=== PATIENT | female | born 1950 | race Caucasian/White ===

== ENCOUNTER 2016-09-24 12:32 | Day surgery (SDC) | payer MEDICARE, BC ==
[~2016-09-24 12:32] MED LIST: AMLO5 PO; FENT50DI T-DERMAL; HUMA100I SC; LANTUSP SQ; LORTA5 PO; PROM25TA5 PO; PROT40TA PO; RIVA15 PO; ROSU40 PO; [UNRECOGNIZED DRUG - CODE] RECTAL
[2016-09-24 13:00] VITALS: BP 191/79; PULSE 100; RESP 20; TEMP 98.4; O2SAT 92
[2016-09-24] MEDS ORDERED: DIAZ5TAB PO (13:03)
[2016-09-24] MEDS ORDERED: ROZE8TAB8 PO (13:03)
[2016-09-24] MEDS ORDERED: EVOX30CA2 PO (13:03)
--- NOTE | 2016-09-24 14:23 | PD.RAD ---
Radiology Post PICC Prog Note Pre Procedure Diagnosis: (1) Encounter for assessment of peripherally inserted central venous catheter ( PICC) Post Procedure Diagnosis: (1) Encounter for assessment of peripherally inserted central venous catheter ( PICC) Procedure: Right PICC line replacement Procedure Date: Sep 24, 2016 Supervising Radiologist Markie Escobar JR Proceduralist/Assist: Enma Duncan, RT(R)(), Kelsey Palma, RT(R) Device Side: Right Greenlandic: 4 single lumen cm: 38 Catheter: Power PICC Plan of Activity Patient to Unit: ROPU Patient Condition: Good PICC line can be used immediately Additional Comments: PICC line broken near hub. Attempts at placing new PICC line show tandem stenosis of the right axillary and subclavian veins requiring venoplasty. Tip of PICC positioned in RA. Functions well. OK to use. Jr. Shawn,Markie Hernandez MD Sep 24, 2016 14:23
[2016-09-24] MEDS ORDERED: IOHEXOL 350 MG/ML 50 ML BTL (for RAD DIAG) ONE (14:25)
--- NOTE | 2016-09-24 16:16 | RADRPT ---
EXAM DATE/TIME: 09/24/2016 13:45 [facility] COMPARISON: No previous studies available for comparison. INDICATIONS : Patient with history of scleroderma in need of PICC line replacement. Patient's current PICC line has fractured at the hub. MEDICAL HISTORY : CAD, COPD, Diabetes, Fibromyalgia, HLD, HSV infection, HTN, Scleroderma, Anal cancer SURGICAL HISTORY : Chest tube, Cholecystectomy, Colonoscopy, Esophageal dilation, Esophagogastroduodenoscopy with biopsy , Hemicolectomy, PTCA, Thoracotomy, Whitmore catheter placement ENCOUNTER: Subsequent ACUITY: 1 day PAIN SCORE: 0/10 FLUORO TIME: 3.7 minutes IMAGE SERIES: 2 MEDICATION(S): 1.) 200 units Heparin IV DEVICE(S): 1.) 4 Albanian single lumen 38 cm Xcela Power PICC TECH NOTE: Edgar balloon 4x40mm 135cmJOJOCHRISSY WIN Sarah MR#:[id number]/ Exam Dt/Desc: September 24PICC LINE REPLACEMENT, POWER PICC PROCEDURE : 1. Fluoroscopic guidance. 2. Right upper extremity venogram 3. Venoplasty of the right axillary vein 4. Venoplasty of the right subclavian vein 5. Fluoroscopic guided central venous Power PICC line replacement. The risks, benefits and alternatives to the procedure were explained and verbal and written consent w as obtained. The arm was prepped in sterile fashion. Full sterile technique was used, including cap , mask, sterile gloves and gown and a large sterile sheet. Hand hygiene and 2% chlorhexidine prep wa s utilized per protocol for cutaneous antisepsis with appropriate dry time for site. The skin and solorio bcutaneous tissues were infiltrated with local anesthetic solution. The existing PICC line shows a fracture at the hub. Under direct fluoroscopic guidance the previously placed PICC line was removed over a guidewire and a fresh Power Injectable PICC line was cut to pres cribed length and attempted to be positioned with tip at the cavoatrial junction level. The PICC line would not progress past vein level. A venogram was therefore performed highlighting a very small casey iber basilic vein which contains the PICC line is a focal high-grade stenosis of the axillary vein as well as the subclavian vein. These responded well to gentle venoplasty utilizing a 4 mm balloon. The PICC line was then able to pass into the cavoatrial junction. The line was flushed and secured per p rotocol. CONCLUSION: 1. PICC line exchange with venoplasty required due to tandem stenoses of the right upper extremity as detailed above. 2. The PICC line can be used immediately. Markie Escobar Jr., MD on September 24, 2016 at 16:03 Board Certified Radiologist. This report was verified electronically.
== END 2016-09-24 14:30 | disposition home or self-care (01) ==
LOC: HROP 12:32 → HRIP 12:35 → HROP 14:30
PROVIDERS: ATTEND Family Medicine
DX: T82.898A Other specified complication of vascular prosthetic devices, implants and grafts, initial encounter (principal); M79.7 Fibromyalgia; J44.9 Chronic obstructive pulmonary disease, unspecified; I10 Essential (primary) hypertension; E78.5 Hyperlipidemia, unspecified; E11.9 Type 2 diabetes mellitus without complications; I25.10 Atherosclerotic heart disease of native coronary artery without angina pectoris
CPT/HCPCS: 36005; 36569; 37248; 76937; 77001; C1725; C1751; J1642; Q9967

== ENCOUNTER → 2016-10-07 | Outpatient (CLI) | payer MEDICARE, BC ==
[~2016-10-07] MED LIST changes: -AMLO5 PO; +DIAZ5TAB PO; +EVOX30CA2 PO; +HUMALOG SQ; +HYDR-3516 PO; +LANTUS2P SQ; +LISI-519 PO; +PERC5TAB12 PO; +PROM25TA10 IV-CENTRAL; -RIVA15 PO; +ROSU20 PO; -ROSU40 PO; +ROZE8TAB8 PO; -[UNRECOGNIZED DRUG - CODE] RECTAL
[2016-10-07 16:54] LABS: BASOPHIL # 0.1 TH/MM3 (0-0.2); BASOPHIL % 0.3 % (0.0-2.0); EOSINOPHIL # 0.4 TH/MM3 (0-0.4); HEMATOCRIT 40.9 % (35.0-46.0); LYMPH % 55.8 % (9.0-44.0); LYMPHOCYTE # 10.4 TH/MM3 (1.0-4.8); MEAN CELL VOLUME 92.6 FL (80.0-100.0); MEAN CORPUSCULAR HEMOGLOBIN 29.7 PG (27.0-34.0); MEAN CORPUSCULAR HGB CONC 32.1 % (32.0-36.0); MONO % 4.4 % (0.0-8.0); NEUT % 37.5 % (16.0-70.0); PLATELET COUNT 204 TH/MM3 (150-450); RED BLOOD COUNT 4.41 MIL/MM3 (4.00-5.30); RED CELL DISTRIBUTION WIDTH 14.2 % (11.6-17.2); WHITE BLOOD COUNT 18.7 TH/MM3 (4.0-11.0)
[2016-10-07 16:55] LABS: HEMO FLAGS AUTO DIFF
[2016-10-07 17:02] LABS: BLOOD, URINE NEG (NEG); GLUCOSE,URINE NEG (NEG); HYALINE CAST, URINE 1 /lpf (RARE); KETONE, URINE NEG (NEG); MUCUS URINE FEW /lpf (OCC); NITRITE,URINE NEG (NEG); SQUAMOUS EPITHELIAL CELL URINE 2 /hpf (0-5); URINE COLOR YELLOW (YELLW/STRAW)
[2016-10-07 17:04] LABS: ALT (GPT) 30 U/L (10-53); ANION GAP 8 MEQ/L (5-15); AST (GOT) 13 U/L (15-37); BICARBONATE 28.4 MEQ/L (21.0-32.0); BLOOD UREA NITROGEN 13 MG/DL (7-18); CHLORIDE 104 MEQ/L (98-107); GLOMERULAR FILTRATION RATE 48 ML/MIN (>89); GLUCOSE,FASTING 184 MG/DL (74-99); POTASSIUM 4.1 MEQ/L (3.5-5.1); SODIUM (NA) 140 MEQ/L (136-145); URIC ACID 4.6 MG/DL (2.6-6.0)
[2016-10-07 17:06] LABS: ALKALINE PHOSPHATASE 123 U/L (45-117); TOTAL BILIRUBIN ADULT 0.3 MG/DL (0.2-1.0)
[2016-10-07 17:25] LABS: BANDS 1 % (0-6); EOSINOPHILS 2 % (0-4); NEUTROPHIL # MANUAL DIFF 10.5 TH/MM3 (1.8-7.7); POLYS (SEG NEUTROPHILS) 55 % (16-70); WBC DIFF SAMPLE 100
[2016-10-07 17:26] LABS: PLATELET ESTIMATE SMEAR NORMAL (NORMAL); PLATELET MORPHOLOGY NORMAL (NORMAL); SCAN/DIFF FINAL DIFF MANUAL
[2016-10-07 18:08] LABS: HDL CHOLESTEROL 53.9 MG/DL (40.0-60.0)
[2016-10-09 19:53] LABS: RHEUMATOID FACTOR 18 IU/mL (<14)
[2016-10-10 11:54] LABS: ANA IFA TITER ND titer (()); ANA SER QL NEGATIVE (NEGATIVE); SJOGRENS AB SSA <1.0 NEG AI (<1.0 NEGATIVE); SJOGRENS AB SSB <1.0 NEG AI (<1.0 NEGATIVE)
[2016-10-10 19:53] LABS: DS DNA AB(CRITHIDIA) NEGATIVE (NEGATIVE); DS DNA AB(CRITHIDIA)TITER ND (<1:10)
== END ==
LOC: PLAB 14:30
PROVIDERS: ATTEND Allergy & Immunology
DX: M34.1 CR(E)ST syndrome (principal); E78.00 Pure hypercholesterolemia, unspecified; N18.9 Chronic kidney disease, unspecified; E11.22 Type 2 diabetes mellitus with diabetic chronic kidney disease; I25.10 Atherosclerotic heart disease of native coronary artery without angina pectoris
CPT/HCPCS: 36415; 80053; 80061; 81001; 84550; 85007; 85027; 86038; 86140; 86235; 86255; 86431

== ENCOUNTER → 2016-11-04 | Outpatient (CLI) | payer MEDICARE, BC ==
[2016-11-04 18:02] LABS: HDL CHOLESTEROL 69.2 MG/DL (40.0-60.0)
== END ==
LOC: PLAB 13:59
PROVIDERS: ATTEND Internal Medicine Interventional Cardiology
DX: E78.00 Pure hypercholesterolemia, unspecified (principal); I25.10 Atherosclerotic heart disease of native coronary artery without angina pectoris; N18.9 Chronic kidney disease, unspecified; E11.22 Type 2 diabetes mellitus with diabetic chronic kidney disease; Z79.899 Other long term (current) drug therapy
CPT/HCPCS: 36415; 80061; 84450; 84460

== ENCOUNTER 2016-11-08 02:15 | Emergency (ER) | payer MEDICARE, BC ==
[~2016-11-08] VITALS: Ht 160 cm; Wt 44.5 kg
[~2016-11-08 02:15] MED LIST changes: -HUMALOG SQ; -HYDR-3516 PO; -LANTUS2P SQ; -LISI-519 PO; -PERC5TAB12 PO; -PROM25TA10 IV-CENTRAL; -ROSU20 PO
[2016-11-08 02:25] VITALS: BP_SYST 61; PULSE 81; RESP 16; TEMP 98.3; O2SAT 98
[2016-11-08 02:26] VITALS: BP 125/61; PULSE 81; RESP 20
--- NOTE | 2016-11-08 02:59 | RADHPO ---
EXAM DATE/TIME: 11/08/2016 02:41 [facility] COMPARISON: No previous studies available for comparison. INDICATIONS : Left elbow pain after fall from ladder 1 hour ago MEDICAL HISTORY : None. SURGICAL HISTORY : None. ENCOUNTER: Initial ACUITY: 1 day PAIN SCORE: 10/10 LOCATION: Left posterior elbow FINDINGS: There is a fracture through the body of the olecranon process. The fracture fragments are b y 1.2 cm. There is evidence of a joint effusion. No definite joint dislocation. The proximal radius i s grossly intact. The distal humerus is grossly intact. CONCLUSION: There is a fracture through the body of the olecranon process with 1.2 cm of separation of the fractu re fragments. Leonel Dietrich MD on November 08, 2016 at 2:56 Board Certified Radiologist. This report was verified electronically.
[2016-11-08 03:12] VITALS: BP 125/61; PULSE 81; RESP 20; TEMP 98.3; O2SAT 98
[2016-11-08 03:30] VITALS: BP 128/65; PULSE 79; RESP 20; O2SAT 99
[2016-11-08] MEDS ORDERED: PROM25TA5 PO (03:42)
[2016-11-08] MEDS ORDERED: HUMALOG SQ (03:42)
[2016-11-08] MEDS ORDERED: PROT40TA PO (03:42)
[2016-11-08] MEDS ORDERED: FENT50DI T-DERMAL (03:42)
[2016-11-08] MEDS ORDERED: HYDR-3516 PO (03:42)
[2016-11-08] MEDS ORDERED: LANTUS2P SQ (03:42)
[2016-11-08] MEDS ORDERED: PROMETHAZINE HCL 25 MG TAB PO ONE (03:45)
[2016-11-08] MEDS ORDERED: oxyCODONE/ACETAMINOPHEN 7.5 MG/325 MG TAB PO ONE (03:45)
--- NOTE | 2016-11-08 03:51 | PD ---
HPI Chief Complaint: Fall Time Seen by Provider: 03:36 Travel History International Travel<30 days: No Contact w/Intl Traveler<30days: No Traveled to known affect area: No History of Present Illness HPI The patient is a 66-year-old female that fell at 1:30 AM this morning on her left elbow. She complains of persistent pain in the left elbow as well as swelling. She denies any numbness, weakness of her hand muscles. He does have a history of scleroderma. The patient's orthopedic physician is Dr. Murry. [facility] Past Medical History Depression: Yes Cancer: Yes (SKIN CANCER, newly diagnosed rectal cancer) Cardiovascular Problems: Yes (STENT IN LAD) COPD: Yes Coronary Artery Disease: Yes Diabetes: Yes (TYPE 1) Patient Takes Glucophage: No Diminished Hearing: No Endocrine: Yes Fibromyalgia: Yes Gastrointestinal Disorders: Yes (LIVER FAILURE) Glaucoma: No Genitourinary: No Hepatitis: No Hiatal Hernia: No Hypertension: Yes Immune Disorder: Yes Medical other: Yes (SCLERODERMA CAD GASTROPARESIS DEGENERATIVE DISC DESEASE, dvt) Musculoskeletal: Yes (DDD) Neurologic: Yes (DIABETIC NEUROPATHY) Psychiatric: Yes (DEPRESSION) Reproductive: No Respiratory: Yes Immunizations Current: Yes Myocardial Infarction: Yes Thyroid Disease: No PNEUMOCCOCAL Vaccine (Year): 2006 Menopausal: Yes Past Surgical History Abdominal Surgery: Yes (INTERTHECAL PUMP ABD,HEMICOLECTOMY) Body Medical Devices: CRAIN CATH Cardiac Surgery: Yes (STENT X 1 LAD) Coronary Stent: Yes (LAD) Ear Surgery: No Endocrine Surgery: No Eye Surgery: Yes (LASER RT EYE AND CATARACTS) Genitourinary Surgery: No Gynecologic Surgery: Yes (HYSTERECTOMY) Hysterectomy: Yes (1982) Neurologic Surgery: No Oral Surgery: Yes ( UPPER AND LOWER FULL EXTRACTION) Pacemaker: No Thoracic Surgery: No Other Surgery: Yes (STENT ,INTRATHECAL PUMP, LT LOWER ABD) Social History Alcohol Use: No Tobacco Use: Yes (1 PPD) Substance Use: No Allergies-Medications (Allergen,Severity, Reaction): Coded Allergies: Erythromycin (Verified Allergy, Severe, SEVERE VOMITING, 09/24/16) PT STATES ALLERGIC TO ALL MYCINS Sulfa (Verified Allergy, Severe, HEADACHE & VOMITING, 09/24/16) Prialt (Verified Allergy, Unknown, PT DOES NOT REMEMBER, 09/24/16) DHE 45 (Verified Adverse Reaction, Intermediate, N/V HIGH BP, 09/24/16) Uncoded Allergies: MYCINS (Adverse Reaction, Severe, HEADACHE,VOMITING & STOMATITIS, 11/02/15) PATIENT VERBALIZES SHE HAD VANCOMYCIN LAST ADMISSION AND DID FINE.. KENNA (Adverse Reaction, Severe, VOMITING, 11/02/15) SEA SNAIL VENOM USED FOR MIGRANE AND NECK PAIN. Reported Meds & Prescriptions Reported Meds & Active Scripts Active Reported Hydrocodone-Acetaminophen 5-325 mg Tab 1 Tab PO Q6H PRN Humalog Inj (Insulin Human Lispro) 1,000 Unit/10 Ml Vial 1-9 Units SQ ACHS Max dose at bedtime:( )units; sugars< 70,(0)units; sugars 150-199,(1)unit; sugars 200-249,(3)units; sugars 250-299,(5)units; sugars 300-349,(7)units; sugars more than 349,(9)units. Lantus Inj (Insulin Glargine) 1,000 Unit/10 Ml Vial 30 Units SQ HS Protonix (Pantoprazole Sodium) 40 Mg Tab 40 Mg PO DAILY Phenergan (Promethazine HCl) 25 Mg Tab 25 Mg PO Q6H PRN Fentanyl Patch 72 HR (Fentanyl) 50 Mcg/Hr Patch 50 Mcg T-DERMAL Q72H Remove old patch when new one placed. Rozerem (Ramelteon) 8 Mg Tab 8 Mg PO DAILY Diazepam 5 Mg Tab 5 Mg PO TID PRN Evoxac (Cevimeline HCl) 30 Mg Cap 30 Mg PO TID Review of Systems Except as stated in HPI: all other systems reviewed are Neg Physical Exam Narrative GENERAL: The patient is alert, oriented 3 in moderate apparent distress with her left elbow pain. Her vital signs are normal. SKIN: Focused skin assessment warm/dry. HEAD: Atraumatic. Normocephalic. EYES: Pupils equal and round. No scleral icterus. No injection or drainage. ENT: No nasal bleeding or discharge. Mucous membranes pink and moist. NECK: Trachea midline. No JVD. CARDIOVASCULAR: Regular rate and rhythm. No murmur appreciated. RESPIRATORY: No accessory muscle use. Clear to auscultation. Breath sounds equal bilaterally. GASTROINTESTINAL: Abdomen soft, non-tender, nondistended. Hepatic and splenic margins not palpable. MUSCULOSKELETAL: No obvious deformities. No clubbing. No cyanosis. No edema. There is tenderness and swelling over the olecranon of the left elbow. NEUROLOGICAL: Awake and alert. No obvious cranial nerve deficits. Motor grossly within normal limits. Normal speech. The patient has normal sensation and capillary refill on the left hand. PSYCHIATRIC: Appropriate mood and affect; insight and judgment normal. Data Data Last Documented VS Vital Signs Date Time Temp Pulse Resp B/P Pulse Ox O2 Delivery O2 Flow Rate FiO2 11/08/16 05:04 76 20 113/59 96 11/08/16 03:12 98.3 Orders Elbow, Complete (4 Vws) (11/08/16 02:34) Splint Or Brace Apply/Monitor (11/08/16 03:41) Morphine Inj (Morphine Inj) (11/08/16 04:15) Prochlorperazine Inj (Compazine Inj) (11/08/16 04:15) Fiberglass Splint Elbow Adult (11/08/16 ) Sling Cradle Arm (11/08/16 ) MDM Medical Decision Making Medical Screen Exam Complete: Yes Emergency Medical Condition: Yes Medical Record Reviewed: Yes Interpretation(s) There is a fracture through the body of olecranon with 1.2 cm separation. There is evidence of a joint effusion. There is no joint dislocation. Differential Diagnosis Fracture left elbow, dislocation left elbow, contusion left elbow Narrative Course The patient has a fracture through the olecranon of the left elbow. Dr. Murry is being called. The physician assistant program director for Dr. Goins called back and recommend the patient be admitted for surgery this morning. The patient refused to be admitted. She said she wanted to go home. Despite strong arguments to stay and be admitted the patient insisted on going home. She was put in a posterior long-arm splint. She was told that this pain would increase and that fixing this fracture would lead to a decrease in pain ultimately. She understood this but insisted on going home. Diagnosis Primary Impression: Fracture of left olecranon process Additional Instructions: Call Dr. Murry office later this morning to try to get back into proper treatment for your elbow. Disposition: 07 AGAINST MEDICAL ADVICE Condition: Stable Ramsey Ro MD November 08, 2016 03:51
[2016-11-08] MEDS ORDERED: PROCHLORPERAZINE INJ 10 MG/2 ML VIAL IV PUSH ONE (04:15)
[2016-11-08] MEDS ORDERED: MORPHINE SULFATE 4 MG/ML INJ IV PUSH ONE (04:15)
[2016-11-08 05:04] VITALS: BP 113/59
[2016-11-08] MEDS ORDERED: ROSU20 PO (12:06)
[2016-11-08] MEDS ORDERED: PERC5TAB12 PO (12:06)
[2016-11-08] MEDS ORDERED: LISI-519 PO (12:06)
== END 2016-11-08 05:20 | disposition left against medical advice (07) ==
LOC: PHED 02:15
DX: S52.022A Displaced fracture of olecranon process without intraarticular extension of left ulna, initial encounter for closed fracture (principal); E10.9 Type 1 diabetes mellitus without complications; I10 Essential (primary) hypertension; F17.200 Nicotine dependence, unspecified, uncomplicated; W19.XXXA Unspecified fall, initial encounter; Z53.29 Procedure and treatment not carried out because of patient's decision for other reasons; Z79.4 Long term (current) use of insulin; Z87.2 Personal history of diseases of the skin and subcutaneous tissue; Z86.59 Personal history of other mental and behavioral disorders; Z85.828 Personal history of other malignant neoplasm of skin; Z85.048 Personal history of other malignant neoplasm of rectum, rectosigmoid junction, and anus; Z86.79 Personal history of other diseases of the circulatory system; Z87.09 Personal history of other diseases of the respiratory system; Z87.39 Personal history of other diseases of the musculoskeletal system and connective tissue; Z87.19 Personal history of other diseases of the digestive system; Z86.2 Personal history of diseases of the blood and blood-forming organs and certain disorders involving the immune mechanism
CPT/HCPCS: 29105; 73080; 96374; 96375; 99284; J0780; J2270

== ENCOUNTER 2016-11-08 10:28 | Emergency (ER) | payer MEDICARE, BC ==
[~2016-11-08] VITALS: Ht 160 cm; Wt 44.5 kg
[~2016-11-08 10:28] MED LIST changes: +HUMALOG SQ; +HYDR-3516 PO; +LANTUS2P SQ
[2016-11-08 10:31] VITALS: BP 185/86; PULSE 104; RESP 20; TEMP 98.4; O2SAT 99
--- NOTE | 2016-11-08 11:37 | PD ---
HPI Chief Complaint: Injury Time Seen by Provider: 10:49 Travel History International Travel<30 days: No Contact w/Intl Traveler<30days: No Traveled to known affect area: No History of Present Illness HPI This is a 66-year-old female who presents to the emergency department having fallen off of a step stool last evening injuring her left elbow. She was diagnosed with an olecranon fracture at [place] in the emergency department last evening. It was recommended at the time that she be admitted but she went home. She says she went home to get some clothes. She returns to the emergency department for admission for surgical intervention. She does have a history of urinary artery disease, scleroderma and diabetes. PFSH Past Medical History Asthma: Yes Depression: Yes Cancer: Yes (SKIN CANCER, ANAL CA) Cardiac Catheterization: Yes (STENTS PLACED) Cardiovascular Problems: Yes (STENT IN LAD) COPD: Yes Coronary Artery Disease: Yes Diabetes: Yes (TYPE 1) Patient Takes Glucophage: No Diminished Hearing: No Endocrine: Yes Fibromyalgia: Yes Gastrointestinal Disorders: Yes (LIVER FAILURE) Glaucoma: No Genitourinary: No Hepatitis: No Hiatal Hernia: No Hypertension: Yes Immune Disorder: Yes Medical other: Yes (SCLEDERMA CAD GASTROPARESIS DEGENERATIVE DISC DESEASE, dvt) Musculoskeletal: Yes (DDD) Neurologic: Yes (DIABETIC NEUROPATHY) Psychiatric: Yes (DEPRESSION) Reproductive: No Respiratory: Yes Immunizations Current: Yes Myocardial Infarction: Yes Pneumonia: Yes Thyroid Disease: No PNEUMOCCOCAL Vaccine (Year): 2006 Menopausal: Yes Past Surgical History Abdominal Surgery: Yes (INTERTHECAL PUMP ABD,HEMICOLECTOMY) Body Medical Devices: CRAIN CATH Cardiac Surgery: Yes (STENT X 1 LAD) Coronary Stent: Yes (LAD) Ear Surgery: No Endocrine Surgery: No Eye Surgery: Yes (LASER RT EYE AND CATARACTS) Genitourinary Surgery: No Gynecologic Surgery: Yes (HYSTERECTOMY) Hysterectomy: Yes (1982) Neurologic Surgery: No Oral Surgery: Yes ( UPPER AND LOWER FULL EXTRACTION) Pacemaker: No Thoracic Surgery: No Other Surgery: Yes (STENT ,INTRATHECAL PUMP, LT LOWER ABD) Social History Alcohol Use: No Tobacco Use: Yes (1 PPD) Substance Use: No Allergies-Medications (Allergen,Severity, Reaction): Coded Allergies: Erythromycin (Verified Allergy, Severe, SEVERE VOMITING, 11/08/16) PT STATES ALLERGIC TO ALL MYCINS Sulfa (Verified Allergy, Severe, HEADACHE & VOMITING, 11/08/16) Prialt (Verified Allergy, Unknown, PT DOES NOT REMEMBER, 11/08/16) DHE 45 (Verified Adverse Reaction, Intermediate, N/V HIGH BP, 11/08/16) Uncoded Allergies: MYCINS (Adverse Reaction, Severe, HEADACHE,VOMITING & STOMATITIS, 11/02/15) PATIENT VERBALIZES SHE HAD VANCOMYCIN LAST ADMISSION AND DID FINE.. PRIAULT (Adverse Reaction, Severe, VOMITING, 11/02/15) SEA SNAIL VENOM USED FOR MIGRANE AND NECK PAIN. Reported Meds & Prescriptions Reported Meds & Active Scripts Active Reported Percocet (Oxycodone-Acetaminophen) 5-325 mg Tab 1 Tab PO BID PRN Crestor (Rosuvastatin Calcium) 20 Mg Tab 20 Mg PO DAILY Lisinopril 5 Mg Tab 5 Mg PO DAILY Humalog Inj (Insulin Human Lispro) 1,000 Unit/10 Ml Vial 1-9 Units SQ ACHS Max dose at bedtime:( )units; sugars< 70,(0)units; sugars 150-199,(1)unit; sugars 200-249,(3)units; sugars 250-299,(5)units; sugars 300-349,(7)units; sugars more than 349,(9)units. Lantus Inj (Insulin Glargine) 1,000 Unit/10 Ml Vial 30 Units SQ HS Protonix (Pantoprazole Sodium) 40 Mg Tab 40 Mg PO DAILY Phenergan (Promethazine HCl) 25 Mg Tab 25 Mg PO Q6H PRN Fentanyl Patch 72 HR (Fentanyl) 50 Mcg/Hr Patch 50 Mcg T-DERMAL Q72H Remove old patch when new one placed. Rozerem (Ramelteon) 8 Mg Tab 8 Mg PO DAILY Diazepam 5 Mg Tab 5 Mg PO TID PRN Evoxac (Cevimeline HCl) 30 Mg Cap 30 Mg PO TID Review of Systems General / Constitutional: No: Fever, Chills HENT: No: Headaches Physical Exam Narrative GENERAL: Well-appearing, no acute distress, nontoxic SKIN: Warm and dry. HEAD: Atraumatic. Normocephalic. ENT: No nasal bleeding or discharge. Moist mucous membranes MUSCULOSKELETAL: Left elbow is in a splint. NEUROLOGICAL: Awake and alert. No obvious cranial nerve deficits. Motor grossly within normal limits. Normal speech. PSYCHIATRIC: Appropriate mood and affect; insight and judgment normal. Data Data Last Documented VS Vital Signs Date Time Temp Pulse Resp B/P Pulse Ox O2 Delivery O2 Flow Rate FiO2 11/08/16 10:45 18 Room Air 11/08/16 10:31 98.4 104 185/86 99 Orders Complete Blood Count With Diff (11/08/16 11:09) Comprehensive Metabolic Panel (11/08/16 11:09) Urinalysis - C+S If Indicated (11/08/16 11:09) Prothrombin Time / Inr (Pt) (11/08/16 11:09) Act Partial Throm Time (Ptt) (11/08/16 11:09) Electrocardiogram (11/08/16 ) ^ Insert Iv (11/08/16 11:09) Acetamin-Hydrocod 325-5 Mg ([place] 5-325 (11/08/16 12:45) Diet Diabetic (11/08/16 Lunch) Chest, Single Ap (11/08/16 ) Labs Laboratory Tests Test 11/08/16 11:26 White Blood Count 17.5 TH/MM3 Red Blood Count 4.06 MIL/MM3 Hemoglobin 12.2 GM/DL Hematocrit 37.3 % Mean Corpuscular Volume 92.0 FL Mean Corpuscular Hemoglobin 30.0 PG Mean Corpuscular Hemoglobin 32.6 % Concent Red Cell Distribution Width 14.1 % Platelet Count 143 TH/MM3 Mean Platelet Volume 10.4 FL Neutrophils (%) (Auto) 44.5 % Lymphocytes (%) (Auto) 49.3 % Monocytes (%) (Auto) 5.1 % Eosinophils (%) (Auto) 1.0 % Basophils (%) (Auto) 0.1 % Neutrophils # (Auto) 7.8 TH/MM3 Lymphocytes # (Auto) 8.6 TH/MM3 Monocytes # (Auto) 0.9 TH/MM3 Eosinophils # (Auto) 0.2 TH/MM3 Basophils # (Auto) 0.0 TH/MM3 CBC Comment AUTO DIFF Differential Total Cells 100 Counted Neutrophils % (Manual) 44 % Band Neutrophils % 3 % Lymphocytes % 47 % Monocytes % 6 % Neutrophils # (Manual) 8.2 TH/MM3 Differential Comment FINAL DIFF MANUAL Smudge Cells PRESENT Platelet Estimate LOW Platelet Morphology Comment NORMAL Red Cell Morphology Comment NORMAL Prothrombin Time 10.9 SEC Prothromb Time International 1.0 RATIO Ratio Activated Partial 26.5 SEC Thromboplast Time Sodium Level 137 MEQ/L Potassium Level 4.5 MEQ/L Chloride Level 103 MEQ/L Carbon Dioxide Level 25.8 MEQ/L Anion Gap 8 MEQ/L Blood Urea Nitrogen 26 MG/DL Creatinine 1.24 MG/DL Estimat Glomerular Filtration 44 ML/MIN Rate Random Glucose 232 MG/DL Calcium Level 9.3 MG/DL Total Bilirubin 0.3 MG/DL Aspartate Amino Transf 12 U/L (AST/SGOT) Alanine Aminotransferase 19 U/L (ALT/SGPT) Alkaline Phosphatase 104 U/L Total Protein 6.7 GM/DL Albumin 3.6 GM/DL MDM Medical Decision Making Medical Screen Exam Complete: Yes Emergency Medical Condition: Yes Interpretation(s) afebrile, tachycardic, hypertensive leukocytosis possibly due to stress response Renal insufficiency Differential Diagnosis Olecranon fracture Narrative Course This is a 66-year-old female who presents to the emergency department for the second time today having sustained a fracture of the left olecranon last evening. She was seen at [place] earlier this morning where was recommended that she be admitted to the hospital. It's unclear to me exactly what happened but the patient left and then return to the emergency department here. I spoke to Dr. Ramos who wanted the patient admitted for medical clearance given her multiple comorbidities. Patient got very agitated and frustrated and decided she didn't want to stay the night. I had spoken to Dr. Ramos earlier and he didn't think it was unreasonable for the patient to follow -up in the office. He wanted her admitted due to all of her comorbidities. The patient refuses to stay in the hospital. She has had respiratory failure in this hospital in the past and I think she has some trauma related to this. I did repeat the recommendation that she should stay in the hospital for surgery that she wants to follow-up in clinic. She was discharged home. Diagnosis Primary Impression: Fracture of left olecranon process Qualified Code: S52.022A - Fracture of left olecranon process, closed, initial encounter Referrals: Chase Huffman MD [facility] Patient Instructions: General Instructions Additional Instructions: If you develop increasing pain, coolness, numbness or weakness of your arm return to the emergency department. Follow up without fail in orthopedics clinic. Med/Other Pt SpecificInfo: No Change to Meds Disposition: 01 DISCHARGE HOME Condition: Stable Elizabeth Silver MD November 08, 2016 11:37
[2016-11-08 11:46] LABS: AUTOMATED NEUTROPHIL # 7.8 TH/MM3 (1.8-7.7); BASOPHIL % 0.1 % (0.0-2.0); EOSINOPHIL # 0.2 TH/MM3 (0-0.4); HEMATOCRIT 37.3 % (35.0-46.0); LYMPH % 49.3 % (9.0-44.0); LYMPHOCYTE # 8.6 TH/MM3 (1.0-4.8); MEAN CORPUSCULAR HGB CONC 32.6 % (32.0-36.0); MONO % 5.1 % (0.0-8.0); NEUT % 44.5 % (16.0-70.0); PLATELET COUNT 143 TH/MM3 (150-450); RED BLOOD COUNT 4.06 MIL/MM3 (4.00-5.30); RED CELL DISTRIBUTION WIDTH 14.1 % (11.6-17.2); WHITE BLOOD COUNT 17.5 TH/MM3 (4.0-11.0)
[2016-11-08 11:48] LABS: HEMO FLAGS AUTO DIFF
[2016-11-08 11:57] LABS: APTT (PATIENT) 26.5 SEC (24.3-30.1); PROTHROMBIN TIME - PATIENT 10.9 SEC (9.8-11.6)
[2016-11-08 12:05] LABS: ANION GAP 8 MEQ/L (5-15); AST (GOT) 12 U/L (15-37); BICARBONATE 25.8 MEQ/L (21.0-32.0); BLOOD UREA NITROGEN 26 MG/DL (7-18); CHLORIDE 103 MEQ/L (98-107); GLOMERULAR FILTRATION RATE 44 ML/MIN (>89); POTASSIUM 4.5 MEQ/L (3.5-5.1); SODIUM (NA) 137 MEQ/L (136-145)
[2016-11-08] MEDS ORDERED: PERC5TAB12 PO (12:06)
[2016-11-08] MEDS ORDERED: ROSU20 PO (12:06)
[2016-11-08] MEDS ORDERED: LISI-519 PO (12:06)
[2016-11-08 12:11] LABS: ALKALINE PHOSPHATASE 104 U/L (45-117); ALT (GPT) 19 U/L (10-53); TOTAL BILIRUBIN ADULT 0.3 MG/DL (0.2-1.0)
[2016-11-08 12:20] LABS: BANDS 3 % (0-6); NEUTROPHIL # MANUAL DIFF 8.2 TH/MM3 (1.8-7.7); POLYS (SEG NEUTROPHILS) 44 % (16-70); WBC DIFF SAMPLE 100
[2016-11-08 12:22] LABS: SMUDGE CELLS PRESENT PRESENT
[2016-11-08 12:24] LABS: PLATELET ESTIMATE SMEAR LOW (NORMAL); PLATELET MORPHOLOGY NORMAL (NORMAL); SCAN/DIFF FINAL DIFF MANUAL
[2016-11-08] MEDS ORDERED: ACETAMINOPHEN/HYDROcodone 325 MG/5 MG TAB PO ONE (12:45)
--- NOTE | 2016-11-08 13:45 | RADRPT ---
EXAM DATE/TIME: 11/08/2016 13:04 [facility] COMPARISON: CHEST SINGLE AP, November 13, 2015, 16:39. INDICATIONS : Short of breath. Pt. fell yesterday, left elbow fracture. per patient. MEDICAL HISTORY : Chronic obstructive pulmonary disease. H/o recent pneumonia. asthma.CAD, COPD, Diabetes, Fibrom yalgia, HLD, HSV infection, HTN, Scleroderma, SURGICAL HISTORY : Chest tube, Cholecystectomy, Colonoscopy, Esophageal dilation, ENCOUNTER: Initial ACUITY: 2 days PAIN SCORE: 0/10 LOCATION: Bilateral chest FINDINGS: Lungs are hyperinflated. There is no evidence of acute air space disease or congestion. Heart and mediastinal structures are stable. PICC line remains in good position. CONCLUSION: COPD without evidence of acute cardiopulmonary process. Charles Russell MD on November 08, 2016 at 13:42 Board Certified Radiologist. This report was verified electronically.
--- NOTE | 2016-11-09 14:00 | EKG ---
Date Performed: 11/08/2016 Time Performed: 11:34:03 PTAGE: 66 years EKG: Sinus rhythm POSSIBLE LEFT ATRIAL ENLARGEMENT NONSPECIFIC T-WAVE ABNORMALITY Compared to previous tracing, the ex tensive ST-T wave changes have essentially resolved. Clincal correlation will be important. BORDERLI NE ECG PREVIOUS TRACING : 11/03/2015 10.13 DOCTOR: Smiley Lezama Interpretating Date/Time 11/09/2016 13:59:25
== END 2016-11-08 14:20 | disposition home or self-care (01) ==
LOC: NEPE 10:28
DX: S52.022A Displaced fracture of olecranon process without intraarticular extension of left ulna, initial encounter for closed fracture (principal); I25.10 Atherosclerotic heart disease of native coronary artery without angina pectoris; Z79.4 Long term (current) use of insulin; M79.7 Fibromyalgia; K72.90 Hepatic failure, unspecified without coma; I10 Essential (primary) hypertension; I25.2 Old myocardial infarction; F17.210 Nicotine dependence, cigarettes, uncomplicated; N28.9 Disorder of kidney and ureter, unspecified; E10.9 Type 1 diabetes mellitus without complications; W10.8XXA Fall (on) (from) other stairs and steps, initial encounter; Z87.2 Personal history of diseases of the skin and subcutaneous tissue; Z85.048 Personal history of other malignant neoplasm of rectum, rectosigmoid junction, and anus; Z85.828 Personal history of other malignant neoplasm of skin
CPT/HCPCS: 29105; 71010; 73080; 80053; 85007; 85027; 85610; 85730; 93005; 96374; 96375; 99283; 99284; J0780; J2270

== ENCOUNTER 2016-12-25 12:57 | Day surgery (SDC) | payer MEDICARE, BC ==
[~2016-12-25 12:57] MED LIST changes: -HUMA100I SC; -HYDR-3516 PO; -LANTUSP SQ; +LISI-519 PO; -LORTA5 PO; +PERC5TAB12 PO; +ROSU20 PO
[2016-12-25 13:20] VITALS: BP 127/65; PULSE 89; RESP 18; TEMP 98.2; O2SAT 94
[2016-12-25] MEDS ORDERED: PROM25TA10 IV-CENTRAL (13:36)
[2016-12-25 14:45] VITALS: BP 110/75; PULSE 71; RESP 20; TEMP 98.3; O2SAT 97
--- NOTE | 2016-12-25 16:11 | RADRPT ---
EXAM DATE/TIME: 12/25/2016 14:35 [facility] COMPARISON: No previous studies available for comparison. INDICATIONS : Patient with a history of Scleroderma . MEDICAL HISTORY : CAD, COPD, Diabetes, Fibromyalgia, HLD, HSV infection, HTN, Scleroderma, Anal cancer SURGICAL HISTORY : Chest tube, Cholecystectomy, Colonoscopy, Esophageal dilation, Esophagogastroduodenoscopy with biopsy, Hemicolectomy, PTCA, Thoracotomy, Whitmore catheter placement ENCOUNTER: Subsequent ACUITY: 3 days PAIN SCORE: 7/10 Bilateral neck FLUORO TIME: 0.51 minutes IMAGE SERIES: 1 ACCESS: Right cephalic vein DEVICE(S): 1.) 4 [place] single lumen 40 cm Power PICC PROCEDURE : 1. Ultrasound guidance for venous catheterization. 2. Fluoroscopic guidance. 3. Ultrasound & fluoroscopic guided central venous Power PICC line placement. The risks, benefits and alternatives to the procedure were explained and verbal and written consent w as obtained. The site was prepped in sterile fashion. Full sterile technique was used, including ca p, mask, sterile gloves and gown and a large sterile sheet. Hand hygiene and 2% chlorhexidine prep w as utilized per protocol for cutaneous antisepsis with appropriate dry time for site. The skin and s ubcutaneous tissues were infiltrated with local anesthetic solution. Under direct ultrasound guidance, a suitable vein was accessed and a measuring guidewire was introduc ed and positioned in the central venous system. The ultrasound images depicting access guidance were saved and stored to PACS for permanent record. A Power Injectable PICC line was cut to prescribed length and introduced, positioned with tip at the cavoatrial junction level. The line was flushed and secured per protocol. CONCLUSION: 1. Uncomplicated central venous Power PICC line placement. 2. The PICC line can be used immediately. Chidi Nicholas MD on December 25, 2016 at 16:09 Board Certified Radiologist. This report was verified electronically.
== END 2016-12-25 14:50 | disposition home or self-care (01) ==
LOC: HROP 12:57 → HRIP 13:07 → HROP 14:50
PROVIDERS: ATTEND Family Medicine
DX: M34.9 Systemic sclerosis, unspecified (principal); M79.7 Fibromyalgia; I10 Essential (primary) hypertension; E78.5 Hyperlipidemia, unspecified; E11.9 Type 2 diabetes mellitus without complications; J44.9 Chronic obstructive pulmonary disease, unspecified; I25.10 Atherosclerotic heart disease of native coronary artery without angina pectoris
CPT/HCPCS: 36569; 76937; 77001; C1751; J1642

== ENCOUNTER → 2017-05-12 | Outpatient (CLI) | payer MEDICARE, BC ==
[~2017-05-12] MED LIST changes: +PROM25TA10 IV-CENTRAL; +ROZE8TAB19 PO; -ROZE8TAB8 PO
[2017-05-12 20:39] LABS: BASOPHIL # 0.1 TH/MM3 (0-0.2); BASOPHIL % 0.3 % (0.0-2.0); EOSINOPHIL # 0.2 TH/MM3 (0-0.4); EOSINOPHIL % 1.1 % (0.0-4.0); HEMATOCRIT 40.2 % (35.0-46.0); LYMPH % 63.5 % (9.0-44.0); LYMPHOCYTE # 12.2 TH/MM3 (1.0-4.8); MEAN CELL VOLUME 92.2 FL (80.0-100.0); MEAN CORPUSCULAR HEMOGLOBIN 29.9 PG (27.0-34.0); MEAN CORPUSCULAR HGB CONC 32.4 % (32.0-36.0); MONO % 3.8 % (0.0-8.0); NEUT % 31.3 % (16.0-70.0); PLATELET COUNT 169 TH/MM3 (150-450); RED BLOOD COUNT 4.36 MIL/MM3 (4.00-5.30); RED CELL DISTRIBUTION WIDTH 14.8 % (11.6-17.2); WHITE BLOOD COUNT 19.3 TH/MM3 (4.0-11.0)
[2017-05-12 20:50] LABS: HEMO FLAGS AUTO DIFF
[2017-05-12 22:03] LABS: EOSINOPHILS 1 % (0-4); NEUTROPHIL # MANUAL DIFF 5.4 TH/MM3 (1.8-7.7); PLATELET ESTIMATE SMEAR NORMAL (NORMAL); PLATELET MORPHOLOGY NORMAL (NORMAL); POLYS (SEG NEUTROPHILS) 28 % (16-70); SCAN/DIFF FINAL DIFF MANUAL; WBC DIFF SAMPLE 100
[2017-05-12 22:04] LABS: SMUDGE CELLS PRESENT PRESENT
== END ==
LOC: PLAB 14:56
PROVIDERS: ATTEND Family Medicine
DX: D72.829 Elevated white blood cell count, unspecified (principal)
CPT/HCPCS: 85007; 85027

== ENCOUNTER → 2017-10-02 | Outpatient (CLI) | payer MEDICARE, BC ==
[2017-10-02 18:35] LABS: ALBUMIN 3.5 GM/DL (3.4-5.0); ALT (GPT) 19 U/L (10-53); AST (GOT) 16 U/L (15-37); BICARBONATE 24.6 MEQ/L (21.0-32.0); BLOOD UREA NITROGEN 17 MG/DL (7-18); CALCIUM 8.6 MG/DL (8.5-10.1); CHLORIDE 108 MEQ/L (98-107); GLOMERULAR FILTRATION RATE 45 ML/MIN (>89); GLUCOSE,FASTING 154 MG/DL (74-99); SODIUM (NA) 142 MEQ/L (136-145)
[2017-10-02 18:38] LABS: ALKALINE PHOSPHATASE 125 U/L (45-117); TOTAL BILIRUBIN ADULT 0.2 MG/DL (0.2-1.0); TOTAL PROTEIN 7.2 GM/DL (6.4-8.2)
[2017-10-02 18:43] LABS: HEMATOCRIT 39.2 % (35.0-46.0); HEMOGLOBIN 12.8 GM/DL (11.6-15.3); MEAN CELL VOLUME 93.6 FL (80.0-100.0); MEAN CORPUSCULAR HEMOGLOBIN 30.6 PG (27.0-34.0); MEAN CORPUSCULAR HGB CONC 32.7 % (32.0-36.0); MEAN PLATELET VOLUME 10.9 FL (7.0-11.0); PLATELET COUNT 201 TH/MM3 (150-450); RED BLOOD COUNT 4.18 MIL/MM3 (4.00-5.30); RED CELL DISTRIBUTION WIDTH 13.2 % (11.6-17.2); WHITE BLOOD COUNT 20.2 TH/MM3 (4.0-11.0)
[2017-10-03 17:20] LABS: HEMOGLOBIN A1C 7.4 % (4.3-6.0)
== END ==
LOC: PLAB 14:05
PROVIDERS: ATTEND Internal Medicine Endocrinology, Diabetes & Metabolism
DX: E10.65 Type 1 diabetes mellitus with hyperglycemia (principal)
CPT/HCPCS: 36415; 80053; 82043; 83036; 85027

== ENCOUNTER → 2017-11-27 | Outpatient (CLI) | payer MEDICARE, BC ==
[2017-11-27 20:28] LABS: AUTOMATED NEUTROPHIL # 6.6 TH/MM3 (1.8-7.7); BASOPHIL % 0.2 % (0.0-2.0); EOSINOPHIL # 0.3 TH/MM3 (0-0.4); EOSINOPHIL % 1.3 % (0.0-4.0); HEMATOCRIT 39.9 % (35.0-46.0); HEMOGLOBIN 13.1 GM/DL (11.6-15.3); LYMPHOCYTE # 13.9 TH/MM3 (1.0-4.8); MEAN CORPUSCULAR HEMOGLOBIN 29.9 PG (27.0-34.0); MEAN CORPUSCULAR HGB CONC 32.9 % (32.0-36.0); MEAN PLATELET VOLUME 10.3 FL (7.0-11.0); MONO % 4.4 % (0.0-8.0); NEUT % 30.1 % (16.0-70.0); PLATELET COUNT 233 TH/MM3 (150-450); RED BLOOD COUNT 4.38 MIL/MM3 (4.00-5.30); RED CELL DISTRIBUTION WIDTH 13.8 % (11.6-17.2); WHITE BLOOD COUNT 21.8 TH/MM3 (4.0-11.0)
[2017-11-27 20:38] LABS: ALBUMIN 3.7 GM/DL (3.4-5.0); AST (GOT) 22 U/L (15-37); BICARBONATE 23.9 MEQ/L (21.0-32.0); BLOOD UREA NITROGEN 19 MG/DL (7-18); CALCIUM 9.2 MG/DL (8.5-10.1); CHLORIDE 105 MEQ/L (98-107); CREATININE 1.37 MG/DL (0.50-1.00); GLOMERULAR FILTRATION RATE 39 ML/MIN (>89); GLUCOSE,RANDOM 74 MG/DL (74-106); SODIUM (NA) 140 MEQ/L (136-145)
[2017-11-27 20:40] LABS: ALT (GPT) 27 U/L (10-53)
[2017-11-27 20:42] LABS: ALKALINE PHOSPHATASE 121 U/L (45-117); TOTAL BILIRUBIN ADULT 0.2 MG/DL (0.2-1.0); TOTAL PROTEIN 7.5 GM/DL (6.4-8.2)
[2017-11-27 21:01] LABS: BANDS 3 % (0-6); LYMPHOCYTES 53 % (9-44); MONOCYTES 4 % (0-8); NEUTROPHIL # MANUAL DIFF 8.7 TH/MM3 (1.8-7.7); POLYS (SEG NEUTROPHILS) 37 % (16-70)
[2017-11-28 16:51] LABS: HEMOGLOBIN A1C 7.8 % (4.3-6.0)
== END ==
LOC: PLAB 14:09
PROVIDERS: ATTEND Family Medicine
DX: E11.40 Type 2 diabetes mellitus with diabetic neuropathy, unspecified (principal); M79.7 Fibromyalgia; E78.5 Hyperlipidemia, unspecified; I10 Essential (primary) hypertension; K21.9 Gastro-esophageal reflux disease without esophagitis
CPT/HCPCS: 36415; 80053; 83036; 85007; 85027